=== PATIENT | female | born 1955 | race Caucasian/White ===

== ENCOUNTER → 2018-03-01 | Outpatient (CLI) | payer OTHER | LOC: SUPIMAGING 14:34 → EDSTATUS 15:57 | PROVIDERS: ATTEND Family Medicine | DX: M25.522 Pain in left elbow (principal) | CPT/HCPCS: 73080-PN ==

== ENCOUNTER → 2018-06-15 | Outpatient (CLI) | payer OTHER | LOC: SUPIMAGING 14:47 → EDSTATUS 15:42 | PROVIDERS: ATTEND Family Medicine | DX: M79.671 Pain in right foot (principal) | CPT/HCPCS: 73630-PN ==